=== PATIENT | female | born 1935 | race Caucasian/White ===

== ENCOUNTER 2017-05-01 08:25 | Outpatient (CLI) | payer MEDICARE ==
--- NOTE | 2017-05-01 09:27 | RAD ---
TWO VIEWS CHEST: COMPARISON: 01/11/14. INDICATION: Dyspnea. FINDINGS: Cardiac silhouette is enlarged. A left-side radiopaque prosthetic device remains. There is a valvul ar prosthesis overlying the upper left cardiac silhouette. No consolidation or effusion. Lungs are mildly hyperinflated. There is vascular calcification. IMPRESSION: 1. Chronic obstructive pulmonary disease. 2. Enlarged cardiac silhouette. 3. No lobar consolidation or effusion. POS: [facility]
== END 2017-05-01 08:26 | disposition home or self-care (01) ==
LOC: RAD 08:25
PROVIDERS: ATTEND Internal Medicine Pulmonary Disease
DX: R06.00 Dyspnea, unspecified (principal); J44.9 Chronic obstructive pulmonary disease, unspecified; I51.7 Cardiomegaly
CPT/HCPCS: 71046

== ENCOUNTER 2017-05-12 08:28 | Outpatient (CLI) | payer MEDICARE ==
--- NOTE | 2017-05-12 09:53 | RAD ---
PA AND LATERAL VIEWS CHEST: Date: 05/12/17 HISTORY: Dyspnea. FINDINGS: Comparison made with exam of 05/01/17. Left-sided pacemaker device remains in place. The heart size is borderline. The aorta is tortuous. Th e lungs are expanded without focal areas of consolidation, pneumothorax, or pleural effusions. Valvul ar prosthesis remains in place. No focal areas of consolidation, pneumothorax, or pleural effusions a re identified. No acute osseous abnormalities are seen. IMPRESSION: Stable exam. No acute process. POS: [facility]
== END 2017-05-12 08:29 | disposition home or self-care (01) ==
LOC: RAD 08:28
PROVIDERS: ATTEND Internal Medicine Critical Care Medicine
DX: R06.00 Dyspnea, unspecified (principal)
CPT/HCPCS: 71046

== ENCOUNTER 2017-06-16 09:35 | Outpatient (CLI) | payer MEDICARE ==
[2017-06-16 10:34] LABS: Hemoglobin 12.8 g/dL (12.0-16.0); Mean Corpuscular HGB CONC 31.4 g/dL (32.0-36.0); Mean Corpuscular Hemoglobin 30.1 pg (27.0-31.0); Mean Corpuscular Volume 95.9 fl (81.0-99.0); Mean Platelet Volume 8.1 fL (7.4-10.4); Platelet Count 186 thou/uL (130-400); RBC Distribution Width 13.2 % (11.5-14.5); Red Blood Cell (RBC) Count 4.27 mill/uL (4.20-5.40); White Blood Cell (WBC) Count 6.3 thou/uL (4.8-10.8)
[2017-06-16 10:36] LABS: INR-International Normal Ratio 2.1; PTT 37.1 SEC (22.9-36.1); Prothrombin Time 24.6 SEC (12.0-14.7)
[2017-06-16 10:54] LABS: Anion Gap 12 mmol/L (10-20); BUN (Urea Nitrogen) 11 mg/dL (9.8-20.1); Calc. Creatinine Clearance 0 mL/min (70-130); Calcium 9.7 mg/dL (7.8-10.44); Carbon Dioxide 27 mmol/L (23-31); Chloride 104 mmol/L (98-107); Estimated GFR-MDRD 73; Glucose 95 mg/dL (83-110); Potassium 3.5 mmol/L (3.5-5.1); Sodium 139 mmol/L (136-145)
--- NOTE | 2017-06-16 22:09 | EKG ---
Test Reason : Blood Pressure : / mmHG Vent. Rate : 092 BPM Atrial Rate : 092 BPM P-R Int : 000 ms QRS Dur : 186 ms QT Int : 452 ms P-R-T Axes : 000 -75 101 degrees QTc Int : 558 ms Electronic ventricular pacemaker When compared with ECG of 11-JAN-2014 08:01, Electronic ventricular pacemaker has replaced Sinus rhythm Confirmed by ALINA WILSON M.D. ([id number] on 06/16/2017 10:09:39 PM Referred By: [facility] Confirmed By:ALINA WILSON M.D.
== END 2017-06-16 09:36 | disposition home or self-care (01) ==
LOC: LABBT 09:35
PROVIDERS: ATTEND Internal Medicine Cardiovascular Disease
DX: Z01.818 Encounter for other preprocedural examination (principal); I48.91 Unspecified atrial fibrillation
CPT/HCPCS: 80048; 85027; 85610; 85730; 93005; 93010

== ENCOUNTER 2017-07-22 08:00 | Outpatient (CLI) | payer MEDICARE ==
[2017-07-22] MEDS ORDERED: ISOVUE-370 76%-LOCM 1 ML ONE (14:23)
== END 2017-07-22 08:01 | disposition home or self-care (01) ==
LOC: BICCT 08:00
PROVIDERS: ATTEND Internal Medicine Gastroenterology
DX: K52.9 Noninfective gastroenteritis and colitis, unspecified (principal); R11.2 Nausea with vomiting, unspecified; R63.4 Abnormal weight loss; R89.9 Unspecified abnormal finding in specimens from other organs, systems and tissues; K80.20 Calculus of gallbladder without cholecystitis without obstruction
CPT/HCPCS: 74177

== ENCOUNTER 2017-07-25 13:47 | Outpatient (CLI) | payer MEDICARE | END 2017-07-25 13:48 | disposition home or self-care (01) | LOC: BICULT 13:47 | PROVIDERS: ATTEND Internal Medicine Gastroenterology | DX: M25.561 Pain in right knee (principal); R93.3 Abnormal findings on diagnostic imaging of other parts of digestive tract ==

== ENCOUNTER → 2017-10-06 | Day surgery (SDC) | payer MEDICARE ==
[2017-10-03 09:41] VITALS: BMI 23.6
[~2017-10-06] MED LIST: Lidocaine 1% PF 5 ML VIAL ONE; PROPOFOL 200 MG/20 ML VIAL ONE; PROPOFOL 40 ML ONE
[2017-10-06 07:01] LABS: #Basophils 0.1 thou/uL (0.0-0.2); #Eosinphils 0.2 thou/uL (0.0-0.7); #Lymphocytes 1.2 thou/uL (1.20-3.40); #Monocytes 0.4 thou/uL (0.11-0.59); %Basophils 1.5 % (0.0-1.0); %Eosinophils 3.3 % (0.0-10.0); %Lymphocytes 24.9 % (21.0-51.0); %Monocytes 7.7 % (0.0-10.0); %Neutrophils 62.6 % (42.0-75.0); Hemoglobin 12.9 g/dL (12.0-16.0); Mean Corpuscular HGB CONC 33.2 g/dL (32.0-36.0); Mean Corpuscular Hemoglobin 30.5 pg (27.0-31.0); Mean Platelet Volume 7.6 fL (7.4-10.4); Platelet Count 163 thou/uL (130-400); RBC Distribution Width 13.8 % (11.5-14.5); Red Blood Cell (RBC) Count 4.22 mill/uL (4.20-5.40); White Blood Cell (WBC) Count 4.8 thou/uL (4.8-10.8)
[2017-10-06 07:10] LABS: INR-International Normal Ratio 1.8; PTT 35.6 SEC (22.9-36.1); Prothrombin Time 21.2 SEC (12.0-14.7)
[2017-10-06 07:23] LABS: Anion Gap 9 mmol/L (10-20); BUN (Urea Nitrogen) 10 mg/dL (9.8-20.1); Calc. Creatinine Clearance 55 mL/min (70-130); Calcium 9.3 mg/dL (7.8-10.44); Carbon Dioxide 27 mmol/L (23-31); Chloride 108 mmol/L (98-107); Estimated GFR-MDRD 72; Glucose 88 mg/dL (83-110); Potassium 3.9 mmol/L (3.5-5.1); Sodium 140 mmol/L (136-145)
--- NOTE | 2017-10-06 17:11 | EKG ---
Test Reason : PREOP Blood Pressure : / mmHG Vent. Rate : 072 BPM Atrial Rate : 068 BPM P-R Int : 000 ms QRS Dur : 114 ms QT Int : 446 ms P-R-T Axes : 000 100 -39 degrees QTc Int : 488 ms Demand pacemaker; interpretation is based on intrinsic rhythm Undetermined rhythm Rightward axis T wave abnormality, consider inferior ischemia T wave abnormality, consider anterior ischemia Prolonged QT Abnormal ECG When compared with ECG of 16-JUN-2017 09:09, Current undetermined rhythm precludes rhythm comparison, needs review Confirmed by SHAHAB LESTER, SSammi ([id number]) on 10/06/2017 5:11:44 PM Referred By: [facility] Confirmed By:DR. Dionicio GUDINO MD
--- NOTE | 2017-10-07 16:43 | ECHO ---
DATE: 10/06/17 PROCEDURE: Transesophageal echocardiogram. ADMITTING PHYSICIAN: Shan Cleaning M.D. REASON FOR PROCEDURE: This is an 81-year-old woman with history of atrial fibrillation persisting. She underwent a Watchman procedure in the past requiring recoiling due to residual leak on 07/15/2017 with a terminal coil. She is here for a repeat EDYTA to rule out a residual leaks. PROCEDURE: The patient received deep sedation by Anesthesia specialist. After adequate sedation achieved, a standard transesophageal echocardiogram probe was passed into the esophagus without difficulty. Patient tolerated the procedure well, no complications noted. RESULTS: Left atrium is moderately enlarged about 4.6 cm in horizontal diameter. Atrial appendage is well visualized and there is adequate ACT. Watchman device is in place. The space behind the Watchman device likely contains clotted material. Adjacent the Watchman device in the very inferior aspect of the device next to mitral valve annulus a very tiny about a 1 mm flow is detected. A similar very tiny about 1 mm flow seen in the superior aspect of the device adjacent to the left superior pulmonary venous aspect. No significant flow is seen though behind the Watchman device. The mitral valve has mild regurgitation. Aortic valve has three leaflets without regurgitation or stenosis. Interatrial septum has a tiny restrictive ASD likely residual of the transseptal puncture. The tricuspid has mild regurgitation. Pacemaker wires in right-sided chambers are seen. The left ventricular function is preserved without significant wall motion abnormalities. The right sided chambers are normal in size. The pulmonary vein appears to be normal. No aortic stenosis or regurgitation is seen of significance. Pericardial space without effusion. Visualized portion the ascending and descending aorta without aneurysm or dissection and only some adherent atheroma seen only. CONCLUSION: 1. Adequately seated Watchman device in the left atrial appendage with very tiny flow only detected in the inferior and the superior aspect of it as detailed above. 2. Mild mitral regurgitation. 3. Pacing wires in right-sided chambers. 4. Normal left ventricular systolic function. PLAN: We will review these images with Dr. Cleaning. If approved likely will discontinue the anticoagulant and switch her to aspirin and Plavix. Addendum: reviewed images w dr Cleaning. He agreed for switching from OAC to DAPT and plan for repeat EDYTA in 3 months. [facility]
== END ==
LOC: CCL 06:06
PROVIDERS: ATTEND Internal Medicine Cardiovascular Disease
PROC: B24BZZ4 Ultrasonography of Heart with Aorta, Transesophageal (ICD-10-PCS; principal; 2017-10-06)
DX: I48.1 Persistent atrial fibrillation (principal); Z95.818 Presence of other cardiac implants and grafts; Z95.0 Presence of cardiac pacemaker; Z79.82 Long term (current) use of aspirin; Z79.01 Long term (current) use of anticoagulants; Z79.899 Other long term (current) drug therapy
CPT/HCPCS: 36415; 80048; 85025; 85610; 85730; 93005; 93010; 93312; J2704

== ENCOUNTER 2018-01-05 06:06 | Day surgery (SDC) | payer MEDICARE ==
[2018-01-02 13:32] VITALS: BMI 23.9
[2018-01-05 06:38] LABS: #Eosinphils 0.2 thou/uL (0.0-0.7); #Lymphocytes 1.1 thou/uL (1.20-3.40); #Monocytes 0.4 thou/uL (0.11-0.59); #Neutrophils 3.8 thou/uL (1.40-6.50); %Basophils 0.5 % (0.0-1.0); %Eosinophils 3.9 % (0.0-10.0); %Lymphocytes 19.2 % (21.0-51.0); %Monocytes 7.4 % (0.0-10.0); %Neutrophils 68.9 % (42.0-75.0); Hemoglobin 12.4 g/dL (12.0-16.0); Mean Corpuscular HGB CONC 31.9 g/dL (32.0-36.0); Mean Corpuscular Hemoglobin 29.9 pg (27.0-31.0); Mean Corpuscular Volume 93.7 fL (78.0-98.0); Mean Platelet Volume 7.8 fL (7.4-10.4); Platelet Count 153 thou/uL (130-400); RBC Distribution Width 13.1 % (11.5-14.5); Red Blood Cell (RBC) Count 4.14 mill/uL (4.20-5.40); White Blood Cell (WBC) Count 5.5 thou/uL (4.8-10.8)
[2018-01-05 07:10] LABS: Chloride 108 mmol/L (98-107); Potassium 3.9 mmol/L (3.5-5.1); Sodium 140 mmol/L (136-145)
[2018-01-05 07:11] LABS: Calcium 9.4 mg/dL (7.8-10.44); Glucose 90 mg/dL (83-110)
[2018-01-05 07:12] LABS: Carbon Dioxide 25 mmol/L (23-31)
[2018-01-05 07:14] LABS: Calc. Creatinine Clearance 55 mL/min (70-130); Estimated GFR-MDRD 72
[2018-01-05 07:15] LABS: BUN (Urea Nitrogen) 12 mg/dL (9.8-20.1)
[2018-01-05] MEDS ORDERED: PROPOFOL 20 ML ONE (07:52)
[2018-01-05 10:33] LABS: Anion Gap 8 mmol/L (10-20)
[2018-01-05 13:25] LABS: INR-International Normal Ratio 0.9; PTT 30.7 SEC (22.9-36.1); Prothrombin Time 12.7 SEC (12.0-14.7)
[2018-01-05] MEDS ORDERED: PROPOFOL 200 MG/20 ML VIAL ONE (14:37)
--- NOTE | 2018-01-09 21:40 | ECHO ---
DATE OF SERVICE: 01/05/18 ATTENDING PHYSICIAN: Dr. Cliff Villalobos and Dr. Chang Vargas. REASON FOR PROCEDURE: The patient is an 82-year-old female with history of chronic atrial fibrillation, CHADS-VASc score, status post Watchman device placement in the past. Due to leak, she underwent a coil occluder closure of Watchman leak on 07/15/2017. Here for a followup EDYTA. PROCEDURE: The patient received propofol by Anesthesia specialist. After adequate sedation achieved, the standard transesophageal echogram probe was passed into the esophagus without difficulty. Patient tolerated the procedure well, no complication noted. RESULTS: The left atrium well visualized. Left appendage has a Watchman device placed. Again the ridge in between the left superior pulmonary vein and the left atrial appendage is still flow detected and again the device, but it does not seem to extend beyond the orifice of the appendage. On the other hand, on the annular side of the Watchman device, there is a tiny maybe 1 mm leak is still visualized. Heavy burden of clot visualized posterior to the Watchman device in the left atrial appendage. Very trivial flow versus artifact is seen beyond the Watchman device. The mitral and tricuspid valves has mild regurgitation only. Left systolic function is preserved. There is tiny residual foramen ovale patency is still documented with restrictive left to right flow only. The pulmonary valve appears normal. Aortic valve has three leaflets without regurgitation or stenosis/ The pericardial space without effusion. The visualized portion of the ascending and descending aorta without aneurysm, dissection or atheroma. Right-sided chambers have a pacemaker wire crossing tricuspid valve. CONCLUSION: 1, Trivial flow by the mitral annular aspect of the Watchman device extending beyond the Watchman device. 2. Flow detected by the ridge between the appendage and the pulmonary vein, but does not seem to extend beyond the base of the Watchman device. 3. Normal left systolic function. 4. Left atrial enlargement 5. Mild mitral and tricuspid regurgitation. 6. Trace patency of the foramen ovale seen likely residual from prior transseptal procedure: 7. Pacemaker wires in the right-sided chambers. PLAN: For now, continue aspirin and Plavix. Relayed this information to Dr. Cleaning. The plan is to consider redo coil procedure. [facility]
== END 2018-01-05 09:27 | disposition home or self-care (01) ==
LOC: CCL 06:06
PROVIDERS: ATTEND Internal Medicine Cardiovascular Disease
PROC: B24BZZ4 Ultrasonography of Heart with Aorta, Transesophageal (ICD-10-PCS; principal; 2018-01-05)
DX: I48.2 Chronic atrial fibrillation (principal); I08.1 Rheumatic disorders of both mitral and tricuspid valves; Q21.1 Atrial septal defect; Z79.02 Long term (current) use of antithrombotics/antiplatelets; Z79.82 Long term (current) use of aspirin; Z98.890 Other specified postprocedural states; Z95.818 Presence of other cardiac implants and grafts
CPT/HCPCS: 36415; 80048; 85025; 85610; 85730; 93005; 93010; 93312; J2704

== ENCOUNTER 2018-06-01 13:34 | Emergency (ER) | payer MEDICARE ==
[2018-06-01] MEDS ORDERED: Ondansetron ODT 4 MG TAB ONE (13:49)
[2018-06-01] MEDS ORDERED: Aspirin Chewable 81 MG TAB ONE (13:50)
[2018-06-01] MEDS ORDERED: Nitroglycerin 2% Ointment 1 INCH/1 GM Packet ONE (13:50)
[2018-06-01 14:08] LABS: #Eosinphils 0.1 thou/uL (0.0-0.7); #Lymphocytes 0.8 thou/uL (1.20-3.40); #Monocytes 0.3 thou/uL (0.11-0.59); #Neutrophils 6.8 thou/uL (1.40-6.50); %Basophils 0.5 % (0.0-1.0); %Eosinophils 0.7 % (0.0-10.0); %Lymphocytes 9.8 % (21.0-51.0); Hemoglobin 13.2 g/dL (12.0-16.0); Mean Corpuscular HGB CONC 32.1 g/dL (32.0-36.0); Mean Corpuscular Volume 93.7 fL (78.0-98.0); Mean Platelet Volume 8.3 fL (7.4-10.4); Platelet Count 149 thou/uL (130-400); RBC Distribution Width 13.7 % (11.5-14.5); Red Blood Cell (RBC) Count 4.39 mill/uL (4.20-5.40)
[2018-06-01 14:22] LABS: ALT (SGPT) 20 U/L (8-55); AST (SGOT) 25 U/L (5-34); Albumin 4.7 g/dL (3.4-4.8); Alkaline Phosphatase 73 U/L (40-150); Anion Gap 15 mmol/L (10-20); BUN (Urea Nitrogen) 14 mg/dL (9.8-20.1); Calc. Creatinine Clearance 0 mL/min (70-130); Calcium 10.1 mg/dL (7.8-10.44); Carbon Dioxide 28 mmol/L (23-31); Chloride 100 mmol/L (98-107); Estimated GFR-MDRD 63; Globulin 2.4 g/dL (2.4-3.5); Glucose 98 mg/dL (83-110); Lipase 76 U/L (8-78); Potassium 3.4 mmol/L (3.5-5.1); Protein, Total 7.1 g/dL (6.0-8.3); Sodium 140 mmol/L (136-145)
--- NOTE | 2018-06-01 14:54 | RAD ---
PORTABLE CHEST: Date: 06/01/18 HISTORY: Shortness of breath. COMPARISON: 05/12/17. FINDINGS: There is evidence of a left ventricular occlusive device overlying the left ventricle. Mild cardiomeg levy. The lungs appear clear. No infiltrate or edema. Pacemaker leads are again noted. IMPRESSION: No acute lung process. POS: [facility]
== END 2018-06-01 14:51 | disposition left against medical advice (07) ==
LOC: SCSER 13:34
DX: R06.00 Dyspnea, unspecified (principal); R53.83 Other fatigue; R11.0 Nausea; I48.91 Unspecified atrial fibrillation; F03.90 Unspecified dementia, unspecified severity, without behavioral disturbance, psychotic disturbance, mood disturbance, and anxiety; F32.9 Major depressive disorder, single episode, unspecified; Z79.899 Other long term (current) drug therapy; Z79.82 Long term (current) use of aspirin
CPT/HCPCS: 71045; 80053; 83690; 83880; 84484; 85025; 93005; 94760; Q0162

== ENCOUNTER 2019-05-14 07:55 | Day surgery (SDC) | payer MEDICARE ==
[2019-05-13 10:40] VITALS: BMI 22.8
[2019-05-14 09:30] LABS: #Eosinphils 0.7 thou/uL (0.0-0.7); #Lymphocytes 0.9 thou/uL (1.20-3.40); #Monocytes 0.5 thou/uL (0.11-0.59); #Neutrophils 5.9 thou/uL (1.40-6.50); %Basophils 0.6 % (0.0-1.0); %Eosinophils 8.5 % (0.0-10.0); %Lymphocytes 11.2 % (21.0-51.0); %Monocytes 6.5 % (0.0-10.0); %Neutrophils 73.2 % (42.0-75.0); Hemoglobin 13.2 g/dL (12.0-16.0); Mean Corpuscular HGB CONC 32.6 g/dL (32.0-36.0); Mean Corpuscular Volume 95.3 fL (78.0-98.0); Mean Platelet Volume 8.5 fL (7.4-10.4); Platelet Count 149 thou/uL (130-400); RBC Distribution Width 12.8 % (11.5-14.5); Red Blood Cell (RBC) Count 4.25 mill/uL (4.20-5.40); White Blood Cell (WBC) Count 8.1 thou/uL (4.8-10.8)
[2019-05-14 09:36] LABS: INR-International Normal Ratio 0.9; PTT 27.8 SEC (22.9-36.1); Prothrombin Time 12.4 SEC (12.0-14.7)
[2019-05-14 09:53] LABS: Anion Gap 12 mmol/L (10-20); BUN (Urea Nitrogen) 15 mg/dL (9.8-20.1); Calc. Creatinine Clearance 48 mL/min (70-130); Calcium 9.5 mg/dL (7.8-10.44); Carbon Dioxide 26 mmol/L (23-31); Chloride 106 mmol/L (98-107); Estimated GFR-MDRD 66; Glucose 86 mg/dL (83-110); Sodium 140 mmol/L (136-145)
[2019-05-14] MEDS ORDERED: PROPOFOL 20 ML ONE (10:03)
--- NOTE | 2019-05-14 11:56 | OP ---
DATE OF PROCEDURE: 05/14/2019 PROCEDURE PERFORMED: Electrical cardioversion. ADDITIONAL REFERRING PHYSICIAN: Dr. Rachid Villalobos, primary care physician. REASON FOR PROCEDURE: Ms. Otto is an 83-year-old woman with history of longstanding persistent atrial fibrillation with three prior ablations, were done in 2011. Recurrence of atrial fibrillation in 2017 is noted, which persists. She is undergoing a cardioversion after amiodarone loading. She had history of GI bleed and subsequently Watchman device placement, which is adequately closed by CT angio. Here for planned cardioversion. DESCRIPTION OF PROCEDURE: The patient's pacemaker was checked pre and post procedure, reprogramming postprocedure was performed to DDIR mode. A synchronized 70-joule shock failed to convert the patient back to sinus rhythm. Subsequently, synchronized 200 joules converted back to sinus rhythm. CONCLUSION: Successful cardioversion. PLAN: Continue tapering dose of amiodarone, monitor for recurrent arrhythmias and add atrial ATP therapies to the device. Job ID: [id number]
--- NOTE | 2019-05-14 16:46 | EKG ---
Test Reason : PREOP Blood Pressure : / mmHG Vent. Rate : 070 BPM Atrial Rate : 070 BPM P-R Int : 220 ms QRS Dur : 100 ms QT Int : 462 ms P-R-T Axes : -62 105 -22 degrees QTc Int : 498 ms Demand pacemaker; interpretation is based on intrinsic rhythm Undetermined rhythm Prolonged QT Abnormal ECG When compared with ECG of 01-JUN-2018 13:45, Current undetermined rhythm precludes rhythm comparison, needs review ST elevation now present in Inferior leads ST elevation has replaced ST depression in Anterior leads Nonspecific T wave abnormality has replaced inverted T waves in Lateral leads Confirmed by DR. Yoan MILLER ([id number]) on 05/14/2019 4:46:41 PM Referred By: [facility] Confirmed By:DR. Yoan MILLER
== END 2019-05-14 12:18 | disposition home or self-care (01) ==
LOC: CCL 07:55
PROVIDERS: ATTEND Internal Medicine Cardiovascular Disease
PROC: 5A2204Z Restoration of Cardiac Rhythm, Single (ICD-10-PCS; principal; 2019-05-14)
DX: I48.11 Longstanding persistent atrial fibrillation (principal); I10 Essential (primary) hypertension; F03.90 Unspecified dementia, unspecified severity, without behavioral disturbance, psychotic disturbance, mood disturbance, and anxiety; I47.2 Ventricular tachycardia; Z86.73 Personal history of transient ischemic attack (TIA), and cerebral infarction without residual deficits; Z79.82 Long term (current) use of aspirin; Z79.899 Other long term (current) drug therapy; Z95.0 Presence of cardiac pacemaker
CPT/HCPCS: 80048; 85025; 85610; 85730; 92960; 93005; 93010; J2704

== ENCOUNTER 2020-11-23 09:58 | Outpatient (CLI) | payer MEDICARE | END 2020-11-23 09:59 | disposition home or self-care (01) | LOC: BICRAD 09:58 | PROVIDERS: ATTEND Internal Medicine Cardiovascular Disease | DX: I48.19 Other persistent atrial fibrillation (principal); Z92.29 Personal history of other drug therapy | CPT/HCPCS: 71046 ==

== ENCOUNTER 2021-12-19 10:12 | Outpatient (CLI) | payer MEDICARE | END 2021-12-19 10:13 | disposition home or self-care (01) | LOC: BICRAD 10:12 | PROVIDERS: ATTEND Physician Assistant | DX: R06.02 Shortness of breath (principal) | CPT/HCPCS: 71046 ==

== ENCOUNTER 2022-03-14 15:16 | Emergency (ER) | payer MEDICARE ==
[2022-03-14 16:07] LABS: #Eosinphils 0.3 thou/uL (0.0-0.7); #Lymphocytes 0.8 thou/uL (1.20-3.40); #Monocytes 0.4 thou/uL (0.11-0.59); #Neutrophils 4.7 thou/uL (1.40-6.50); %Basophils 0.3 % (0.0-1.0); %Eosinophils 4.4 % (0.0-10.0); %Lymphocytes 13.3 % (21.0-51.0); Hemoglobin 14.1 g/dL (12.0-16.0); Mean Corpuscular HGB CONC 32.4 g/dL (32.0-36.0); Mean Corpuscular Hemoglobin 31.7 pg (27.0-31.0); Mean Corpuscular Volume 97.6 fl (78.0-98.0); Mean Platelet Volume 8.3 fL (7.4-10.4); Platelet Count 168 10x3/uL (130-400); RBC Distribution Width 12.5 % (11.5-14.5); Red Blood Cell (RBC) Count 4.44 mill/uL (4.20-5.40); White Blood Cell (WBC) Count 6.2 10x3/uL (4.8-10.8)
[2022-03-14 16:31] LABS: Acetaminophen Less than 10.0 mcg/mL (10.0-30.0); Alcohol Less than 10 mg/dL (Less than 10); Salicylate Less than 8.0 mg/dL (15.0-30.0)
[2022-03-14 16:32] LABS: ALT (SGPT) 9 U/L (8-55); AST (SGOT) 20 U/L (5-34); Albumin 3.8 g/dL (3.4-4.8); Alkaline Phosphatase 65 U/L (40-110); Anion Gap 12 mmol/L (10-20); BUN (Urea Nitrogen) 14 mg/dL (9.8-20.1); Bilirubin, Total 1.1 mg/dL (0.2-1.2); Calc. Creatinine Clearance 0 mL/min (70-130); Calcium 9.6 mg/dL (7.8-10.44); Carbon Dioxide 26 mmol/L (23-31); Chloride 103 mmol/L (98-107); Estimated GFR 59; Globulin 2.4 g/dL (2.4-3.5); Glucose 77 mg/dL (83-110); Protein, Total 6.2 g/dL (5.8-8.1); Sodium 137 mmol/L (136-145)
[2022-03-14 16:35] LABS: Bilirubin 1+ (Negative); Blood, Urine Negative (Negative); Calcium Oxalate Crystals Rare HPF (None Seen); Glucose, Urine (Dipstick) Normal (Negative); Ketone, Urine 20 mg/dL (Negative); Leukocyte 25 Leu/uL (Negative); Nitrite Negative (Negative); Protein, Urine (Dipstick) 20 mg/dL (Neg-Trace); Specific Gravity, Urine 1.024 (1.002-1.036); Squamous Epithelial 0-3 HPF (0-3); Urobilinogen 3 mg/dL (Less than 2); pH, Urine 5.5 (5.0-9.0)
[2022-03-14 16:36] LABS: Bacteria/HPF Rare-Few HPF (None Seen); Clarity Cloudy (Clear)
[2022-03-14 16:43] LABS: Amphetamine Not Detected (NotDetected); Barbiturates Screen Not Detected (NotDetected); Benzodiazepine Screen Detected (NotDetected); Cocaine Metabolite Screen Not Detected (NotDetected); Methadone Not Detected (NotDetected); Methamphetamine Not Detected (NotDetected); Opiate Screen Not Detected (NotDetected); Oxycodone Screen Not Detected (NotDetected); Phencyclidine (PCP) Not Detected (NotDetected); THC/Cannabinoid Screen Not Detected (NotDetected); Tricyclic Screen Not Detected (NotDetected)
== END 2022-03-14 18:40 | disposition home or self-care (01) ==
LOC: ERS 15:16
DX: E86.0 Dehydration (principal); F03.90 Unspecified dementia, unspecified severity, without behavioral disturbance, psychotic disturbance, mood disturbance, and anxiety; F32.A Depression, unspecified
CPT/HCPCS: 36415; 51701; 70450; 80053; 80306; 80307; 81003; 81015; 84443; 85025; 93005; 94760